=== PATIENT | male | born 1965 | race Caucasian/White ===

== ENCOUNTER 2018-11-26 11:44 | Day surgery (SDC) | payer OTHER ==
[~2018-11-26] VITALS: Ht 172.7 cm; Wt 101.1 kg
[2018-11-26] VITALS (17 sets, daily range): BP systolic 117–157; BP diastolic 68–91; PULSE 72–80; RESP 14–30; Ht 172.7 cm; Wt 101.1 kg
[~2018-11-26 11:44] MED LIST: HYDR-4011 PO; LEVO750T8 PO; LOSA100T15 PO; RANI300T PO
--- NOTE | 2018-11-26 13:10 | RADRPT ---
Vent Rate: 76 bpm RR Interval: 792 msec NV Interval: 159 msec QRS Duration: 141 msec QT Interval: 393 msec QTC Interval: 442 msec P-R-T Presto: 52 - -13 - 11 degrees Sinus rhythm...normal P axis, V-rate 50- 99 Right bundle branch block...QRSd>120, terminal axis(90,270) Electronically Signed By: Pernell Donahue
[2018-11-26] MEDS ORDERED: LACTATED RINGER'S 1,000 ML IV SCH (13:30)
[2018-11-26] MEDS ORDERED: INDOMETHACIN 50 MG SUPP PR ONE (14:30)
--- NOTE | 2018-11-26 14:52 | PREAC ---
Date/Time of Note Date/Time of Note DATE: 11/26/18 TIME: 14:51 Anesthesia Eval and Record Evaluation Time Pre-Procedure Interview DATE: 11/26/18 TIME: 14:51 Age 53 Sex male NPO: 8 hrs Preoperative diagnosis CBD stone Planned procedure ERCP Past Medical History Past Medical History: Includes Cardio: HTN GI: Obesity Surgery & Anesthesia Issues No known issue Meds Anticoagulation: No Beta Elver within 24 hr: No Reason Beta Elver not given: Pt. not on B-Elver Reported Medications Hydrocodone/Acetaminophen ([place] 5-325 Tablet) 1 Each Tablet, 1-2 TAB PO Q6 PRN for PAIN, TAB 11/26/18 Ranitidine Hcl* (Ranitidine Hcl*) 300 Mg Tablet, 300 MG PO HS, #30 TAB 11/26/18 Levofloxacin* (Levofloxacin*) 750 Mg Tablet, 750 MG PO DAILY, TAB 11/26/18 Losartan Potassium* (Losartan Potassium*) 100 Mg Tablet, 100 MG PO DAILY, TAB 11/26/18 Current Medications Lactated Ringer's 1,000 ml @ 30 mls/hr Q24H IV Last administered on 11/26/18at 13:24; Admin Dose 30 MLS/HR; Start 11/26/18 at 13:30 Meds reviewed: Yes Allergies Coded Allergies: codeine (Verified Allergy, Unknown, 11/26/18) PASSED OUT Allergies Reviewed: Yes Labs/Studies Labs Reviewed: Reviewed by anesthesiologist Result Diagram: 11/26/18 1315 11/26/18 1315 Laboratory Tests 11/26/18 13:15 test: N/A Studies: ECG Pre-procedure Exam Last vitals Vital Signs Date Temp Pulse Resp B/P (MAP) Pulse Ox O2 O2 Flow FiO2 Time Delivery Rate 11/26/18 98.3 79 18 157/83 96 13:29 (107) Airway: Adequate mouth opening, Adequate thyromental dist Mallampati: Mallampati II Teeth: Normal Lung: Normal Heart: Normal ASA Physical Status ASA physical status: 2 Emergency: None Planned Anesthetic General/MAC: ETT Pre-operative Attestations Prior to commencing anesthesia and surgery, the patient was re-evaluated, there was verification of: *The patient's identity *The results of appropriate recent lab work and preoperative vital signs *The above evaluation not changing prior to induction *Anesthetic plan, risk benefits, alternative and complications discussed with patient/family; questions answered; patient/family understands, accepts and wishes to proceed. BETTY SOSA Nov 26, 2018 14:52
[2018-11-26] MEDS ORDERED: FENTAnyl 50 MCG/ML VIAL ONE (14:59)
[2018-11-26] MEDS ORDERED: FENTAnyl 50 MCG/ML VIAL IV PRN ×2 (15:00)
[2018-11-26] MEDS ORDERED: CIPROFLOXACIN 400MG/D5W 200 ML ONE (15:16)
[2018-11-26] MEDS ORDERED: LABETALOL HCL 20MG INJ ONE (15:28)
[2018-11-26] MEDS ORDERED: IOHEXOL 300MG/ML 30 ML BTL ONE (15:47)
[2018-11-26] MEDS ORDERED: LIDOCAINE 100 MG SYRINGE ONE (16:52)
[2018-11-26] MEDS ORDERED: SUCCINYLCHOLINE CHLORIDE 100 MG/5 ML SYG IV ONE (16:52)
[2018-11-26] MEDS ORDERED: ROCURONIUM 50 MG INJ ONE (16:52)
[2018-11-26] MEDS ORDERED: PROPOFOL 20 ML ONE (16:52)
[2018-11-26] MEDS ORDERED: SUGAMMADEX SODIUM 200 MG/2 ML VIAL IV ONE (16:52)
[2018-11-26] MEDS ORDERED: ONDANSETRON 4 MG INJ ONE (17:45)
[2018-11-26] MEDS ORDERED: ONDANSETRON 4 MG INJ IV STA (17:46)
[2018-11-26] MEDS ORDERED: METOCLOPRAMIDE 10 MG INJ IV ONE (18:30)
--- NOTE | 2018-11-26 21:08 | GILP ---
DATE OF PROCEDURE: 11/26/2018 PROCEDURE: Endoscopic retrograde cholangiopancreatography, extending the fistulotomy, SpyGlass, flor ium laser with a setting of 1 joule and 10 Hz, removal of the stone and placement of self-expanding m etallic stent. INDICATION: A 53-year-old male undergoing this procedure for bile duct stone which could not be michelle lenny by 2 previous gastroenterologists. The patient had 5 to 6 ERCPs in the past. The purpose of thi s procedure is to evaluate the biliary system and perform therapeutic endoscopy. The risk of the pro cedure, related and unrelated complications, anesthetic risks, alternatives discussed. Informed cons ent was obtained. DESCRIPTION OF PROCEDURE: The patient was brought to the GI lab, sedated by the anesthesiologist, edgar reyesd in a prone position, was given Indocin suppository and also Cipro. After optimal sedation, ERCP scope passed with much ease into the esophagus, advanced further down into stomach and duodenum. Th ere was a fistulotomy done. Stent was there. Stent was removed. We cannulated through the fistulot michael, large stone completely blocking the bile duct identified. 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 At this point, we passed the sphincterotome, extended the fistulotomy, and a guidewire was passed deep inside. Over the guidewire, we passed the SpyGlass, examined right hepatic duct, left hepatic duct. All appeared normal. Large pigmented stone identif ied. We could not get the proper angulation because it was a long route. We passed then holmium las er fiber through the SpyScope, and it was technically difficult to pass it. We had to pass it millim eter by millimeter because of the long route. Finally pulled out the SpyScope and passed the fiber. Once the fiber was out, we again cannulated the bile duct with the SpyScope. Stone was identified. Could not get proper angulation. Managed to torque the scope, get the angulation, and a holmium las er was applied, breaking the stone into multiple pieces? and after breaking it into multiple pieces, we removed the SpyScope, used the 9 to 12 balloon, and extracted all the broken stones until the bile duct appeared clean on the x-rays. Cystic duct was visualized. There was also a small remnant of g allbladder left behind. There was no free extravasation of the bile. At this point, decided to depl oy self-expanding metallic stent, which was deployed successfully. Excellent drainage established an d scope was removed with good patient tolerance. IMPRESSION: 1. Removal of plastic stent. 2. Sphincterotomy done. 3. SpyGlass introduced into the bile duct and the stone was identified. 4. Holmium laser was used to break the stone. 5. Occlusive balloon was used to remove all of the stones. 6. Self-expanding metallic stent, 10 x 60 successfully deployed and excellent drainage established. PLAN: 1. Follow the patient in a few days in the office. 2. If he develops fever or pain, he should come to the emergency room. 3. The stent needs to be removed after 4 months. Dictated By: JANIS BARR/ZEB Conf#: [id number] DID#: [id number] CC: WILLIS CARPIO;*End*
--- NOTE | 2018-11-29 07:27 | PAC ---
Date/Time of Note Date/Time of Note DATE: 11/29/18 TIME: 07:27 Post-Anesthesia Notes Post-Anesthesia Note Last documented vital signs Vital Signs Date Temp Pulse Resp B/P (MAP) Pulse Ox O2 O2 Flow FiO2 Time Delivery Rate 11/26/18 72 16 147/73 94 Room Air 18:21 (97) 11/26/18 98.5 17:10 11/26/18 8.0 17:06 Activity: WNL Respiratory function: WNL Cardiovascular function: WNL Mental status: Baseline Pain reasonably controlled: Yes Hydration appropriate: Yes Nausea/Vomiting absent: Yes BETTY SOSA Nov 29, 2018 07:27
== END 2018-11-26 19:00 | disposition home or self-care (01) ==
LOC: SDS 11:44
PROVIDERS: ATTEND Internal Medicine Gastroenterology
DX: K80.50 Calculus of bile duct without cholangitis or cholecystitis without obstruction (principal); I10 Essential (primary) hypertension; E66.9 Obesity, unspecified; Z68.33 Body mass index [BMI] 33.0-33.9, adult
CPT/HCPCS: 74330; 80048; 85025; 85610; 85730; 93005; C2617; J0744; J2001; J2405; J2765; J3010; Q9967